=== PATIENT | female | born 1995 ===

== ENCOUNTER → 2021-05-19 11:50 | Outpatient (CLI) | payer OTHER, SELFPAY ==
[2021-05-19 14:35] LABS: COVID19 -Nasal RAPID Negative (Negative)
== END ==
PROVIDERS: Visit Provider Family Medicine Sleep Medicine
DX: Z20.822 Contact with and (suspected) exposure to COVID-19 (principal)
CPT/HCPCS: 87635; C9803

== ENCOUNTER 2021-05-21 06:59 | Day surgery (SDC) | payer OTHER, SELFPAY ==
[2021-05-21 07:31] VITALS: BP 119/81; PULSE 73; RESP 16; TEMP 36.4; O2SAT 96; BMI 32.8
[2021-05-21] MEDS: SODIUM CHLORIDE 0.9% 1,000 ML 84 ML IV (07:39)
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
--- NOTE | 2021-05-21 08:13 | PM.OP.COLON ---
Operative Date/Time/Diagnoses Date of procedure: 05/21/21 Pre-op diagnosis: Rectal bleeding Procedure & Clinicians Study performed: Colonoscopy Indications: Rectal bleeding Surgeon: Hayder Lehman Procedure Notes Procedure in detail: After informed consent was obtained the patient was placed in left lateral decubitus position. The video colonoscope was introduced the rectum slowly advanced to the cecum. On slow withdrawal mucosa was carefully examined. The scope was removed. The patient tolerated procedure well. Preparation was good. Blood loss none Complications none Sedation mac Findings 1. Mild internal hemorrhoids 2. Otherwise negative colonoscopy to cecum She will continue the use some some type of laxative with fiber preferred on a daily basis. If bleeding continues to be a major issue she should 1st try Proctocream HC apply the antrum annually b.i.d. and if that does not work she should make an appointment with the general surgeons.
--- NOTE | 2021-05-21 08:27 | SUR.OPER ---
SHORT PERIOD OF EXTERNAL PRESSURE
[2021-05-21 08:36] VITALS: BP 124/67; PULSE 74; RESP 13; TEMP 36.3; O2SAT 100
[2021-05-21 08:40] VITALS: BP 125/77; PULSE 75; RESP 16; O2SAT 100
[2021-05-21 08:47] VITALS: BP 124/77; PULSE 64; RESP 15; TEMP 36.3; O2SAT 99
[2021-05-21 08:54] VITALS: BP 121/66; PULSE 72; RESP 16; O2SAT 98
== END 2021-05-21 08:54 | disposition home or self-care (01) ==
PROVIDERS: Referring Provider Internal Medicine Gastroenterology; Visit Provider Internal Medicine Gastroenterology
PROC: 0DJD8ZZ Inspection of Lower Intestinal Tract, Via Natural or Artificial Opening Endoscopic (ICD-10-PCS; CPT 45378; principal; 2021-05-21 08:30)
DX: K64.8 Other hemorrhoids (principal)
CPT/HCPCS: 45378; J2704

== ENCOUNTER 2022-07-22 08:19 | Day surgery (SDC) | payer OTHER, SELFPAY ==
--- NOTE | 2022-07-22 | PATH_ITS ---
[facility] Accession Number: [id number] No. of containers..01 Tissue . 01 Material submitted: . pyloric antrum - PRE PYLORIC INFLAMMATORY NODULE . 01 Diagnosis: Prepyloric Inflammatory Nodule, Biopsy: Gastric mucosa with mild chronic inflammation and reactive foveolar hyperplasia. No Helicobacter pylori organisms identified on immunohistochemical evaluation. No intestinal metaplasia, dysplasia, or malignancy identified. See comment. MRV 07/28/2022 1222 Local . 01 Comment: Foveolar hyperplasia often represents a reactive process due to recurrent mucosal injury. It may also be seen as a polypoid/nodular appearance on endoscopy. . 01 Electronically signed: . Fatmata العراقي MD, Pathologist NPI- [id number] . 01 Gross description: . PRE PYLORIC INFLAMMATORY NODULE: Received in formalin are 2 fragment(s) of frank, soft tissue measuring 0.1 x 0.1 x 0.1 cm to 0.4 x 0.2 x 0.2 cm submitted entirely in 1 cassette(s) /TERRANCE 07/24/2022 1853 Local . 01 Microscopic: . A. An immunohistochemical stain was performed to evaluate for Helicobacter organisms and is negative. The control stain showed appropriate reactivity. . * This test was developed and its performance characteristics determined by [facility]. It has not been cleared or approved by the U.S. Food and Drug Administration. The FDA has determined that such clearance or approval is not necessary. This test is used for clinical purposes. It should not be regarded as investigational or for research. . 01 Pathologist provided ICD-10: K29.70, K21.9 . 01 CPT . 046438, B18906 Specimen Comment: A courtesy copy of this report has been sent to [phone] Performed at: 01 [facility] [address], [place], [place] [id number] MD Adin Dao MD Phone: [phone]
[2022-07-22 08:44] VITALS: BMI 34.5
[2022-07-22 08:59] VITALS: BP 117/77; PULSE 76; RESP 16; TEMP 36.1; O2SAT 99
[2022-07-22] MEDS: LACTATED RINGERS 1,000 ML 100 ML IV (09:03)
--- NOTE | 2022-07-22 09:05 | PM.PREOP ---
Pre-operative Note COVID-19 COVID-19 status: Negative Interval Note History & Physical reviewed/Exam performed by Physician: Yes Changes to H&P: No ASA Class (for procedural sedation): II
--- NOTE | 2022-07-22 09:05 | PM.OP.EGD ---
Operative Date/Time/Diagnoses Date of procedure: 07/22/22 Pre-op diagnosis: See indication and findings Procedure & Clinicians Study performed: EGD Indications: Reflux rule out Kim's esophagus and esophagitis Surgeon: Hayder Lehman Procedure Notes Procedure in detail: After informed consent was obtained the patient was placed in the left lateral decubitus position. The video upper scope was placed into the oropharynx and with the patient's help swallowed into the esophagus. The esophagus stomach and duodenum were carefully examined. On withdrawal, retroflexed view the GE junction was performed. The scope was removed. The patient tolerated procedure well. Blood loss none Complications none Sedation mac Findings 1. Completely normal esophagus including the squamocolumnar junction. No abnormal tissue seen above the top of the G folds. 2. 1.5 cm inflammatory nodule with adherent hematin josep in a pre-pyloric position. Two biopsies taken. 3. Normal duodenal bulb and sweep Patient is to stay on her medication and follow up with Dr. Reynolds as needed.
[2022-07-22 10:02] VITALS: BP 112/74; PULSE 72; RESP 15; TEMP 36; O2SAT 99
[2022-07-22 10:08] VITALS: BP 121/75; PULSE 70; RESP 13; O2SAT 99
[2022-07-22 10:13] VITALS: BP 124/91; PULSE 70; RESP 14; O2SAT 100
--- NOTE | 2022-07-22 10:26 | SUR.PHASEII ---
DC home with belongings and in WC. denies pain, n/v.
== END 2022-07-22 10:32 | disposition home or self-care (01) ==
PROVIDERS: Referring Provider Internal Medicine Gastroenterology; Visit Provider Internal Medicine Gastroenterology
PROC: 0DJ08ZZ Inspection of Upper Intestinal Tract, Via Natural or Artificial Opening Endoscopic (ICD-10-PCS; CPT 43235; principal; 2022-07-22 09:30)
DX: K21.9 Gastro-esophageal reflux disease without esophagitis (principal); K29.50 Unspecified chronic gastritis without bleeding
CPT/HCPCS: 43239; J2704